=== PATIENT | female | born 2000 | race American Indian/Alaskan Native ===

== ENCOUNTER 2022-06-07 11:26 | Emergency (ER) | payer SELFPAY ==
--- NOTE | 2022-06-07 12:49 | Emergency Department Report ---
ED Chest Pain HPI - General Chief Complaint: Chest Pain Stated Complaint: CHEST PAIN SOB AND WHEEZING Time Seen by Provider: 06/07/22 12:45 Source: patient Mode of arrival: Ambulatory Limitations: No Limitations - History of Present Illness Initial Comments: 22-year-old female presents with chest pain since yesterday. Patient describes pain in her chest substernal, does not radiate to any of extremities. Symptoms associated with shortness of breath, states she walks a few steps and she is short of breath. She also reports nasal drainage, congestion, cough, and wheezing. She denies history of asthma. Cough is productive of clear mucus, she denies fever, she denies headache dizziness no lower lower extremity swelling. Patient is hypertensive in triage which she denies history of high blood pressure. MD Complaint: chest pain -: Gradual Pain Location: substernal Pain Radiation: none Severity scale (0 -10): 6 Improves With: nothing Context: recent illness re: nausea, vomting. denies: diaphoresis, dyspnea, sense of impending doom Other Symptoms: cough. denies: fever, palpitations Treatments Prior to Arrival: none - Related Data Previous Rx's Medication Instructions Recorded Last Taken Type Albuterol Sulfate [Albuterol 0.63% 0.63 mg IH TID PRN #30 vial 06/07/22 Unknown Rx NEBS] Albuterol Sulfate [Proair 90 mcg IH Q6H PRN #1 06/07/22 Unknown Rx Respiclick] Promethazine Dm (Nf) [Phenergan DM 5 ml PO Q6H PRN #120 06/07/22 Unknown Rx 6.25-15 mg/5 ml] Allergies Allergy/AdvReac Type Severity Reaction Status Date / Time No Known Allergies Allergy Verified 06/07/22 12:13 Heart Score - HEART Score History: Slightly suspicious EKG: Normal Age: < 45 Risk factors: No known risk factors Troponin: < normal limit HEART Score: 0 - EKG Read Time Time EKG Completed: 12:17 EKG Read Time: 12:20 - Critical Actions Critical Actions: 0-3 pts:0.9-1.7%risk of adverse cardiac event.Candidate for discharge ED Review of Systems ROS: Stated complaint: CHEST PAIN SOB AND WHEEZING Other details as noted in HPI Constitutional: no symptoms reported Eyes: eye discharge ENT: congestion (Nasal drainage). denies: ear pain, throat pain Respiratory: cough, shortness of breath, wheezing. denies: orthopnea Cardiovascular: chest pain. denies: palpitations, dyspnea on exertion, edema Gastrointestinal: abdominal pain, nausea, vomiting, diarrhea Genitourinary: denies: urgency, dysuria Musculoskeletal: denies: back pain Skin: denies: rash, lesions Psychiatric: denies: anxiety, auditory hallucinations, homicidal thoughts ED Past Medical Hx - Medications Home Medications: Home Medications Medication Instructions Recorded Confirmed Last Taken Type Albuterol Sulfate [Albuterol 0.63% 0.63 mg IH TID PRN #30 vial 06/07/22 Unknown Rx NEBS] Albuterol Sulfate [Proair 90 mcg IH Q6H PRN #1 06/07/22 Unknown Rx Respiclick] Promethazine Dm (Nf) [Phenergan DM 5 ml PO Q6H PRN #120 06/07/22 Unknown Rx 6.25-15 mg/5 ml] ED Physical Exam - General Limitations: No Limitations General appearance: alert, in no apparent distress - Head Head exam: Present: atraumatic - Eye Eye exam: Present: normal appearance, PERRL Pupils: Present: normal accommodation - ENT ENT exam: Present: normal exam, mucous membranes moist, other (No rhinorrhea, no sinus tenderness) - Neck Neck exam: Present: normal inspection. Absent: tenderness - Respiratory Respiratory exam: Present: normal lung sounds bilaterally, chest wall tenderness. Absent: respiratory distress, wheezes - Cardiovascular Cardiovascular Exam: Present: regular rate, normal rhythm - GI/Abdominal GI/Abdominal exam: Present: soft. Absent: distended, tenderness - Extremities Exam Extremities exam: Present: normal inspection, full ROM, normal capillary refill. Absent: tenderness - Back Exam Back exam: Present: normal inspection, full ROM. Absent: CVA tenderness (R), CVA tenderness (L) - Neurological Exam Neurological exam: Present: alert, oriented X3, CN II-XII intact, normal gait, reflexes normal - Skin Skin exam: Present: warm, dry, intact, normal color ED Course Vital Signs 06/07/22 12:09 Temperature 98.3 F Pulse Rate 105 H Blood Pressure 184/119 [Right] O2 Sat by Pulse 99 Oximetry ED Medical Decision Making - Lab Data Result diagrams: 06/07/22 14:24 06/07/22 14:24 - Radiology Data Radiology results: image reviewed interpreted by me: Negative for acute effusions, cardiomegaly or infiltrates - Medical Decision Making 22-year-old female presents with chest pain since yesterday. Patient describes pain in her chest substernal, does not radiate to any of extremities. Symptoms associated with shortness of breath, states she walks a few steps and she is short of breath. She also reports nasal drainage, congestion, cough, and wheezing. She denies history of asthma. Cough is productive of clear mucus, she denies fever, she denies headache dizziness no lower lower extremity swelling. Patient is hypertensive in triage which she denies history of high blood pressure Vital signs is improved, EKG is nonischemic, troponin is negative, heart score of 0, patient is not hypoxic, tolerating oral intake without vomiting, throughout ED course. Chest x-ray is negative for any acute infectious process. Symptoms are mostly viral, differential diagnosis includes COVID, g astroenteritis, asthma, bronchitis, pneumonia, gastroenteritis, Critical care attestation.: If time is entered above; I have spent that time in minutes in the direct care of this critically ill patient, excluding procedure time. ED Disposition Clinical Impression: Bronchitis, Acute gastroenteritis, Elevated blood pressure reading Disposition: HOME / SELF CARE / HOMELESS Is pt being admited?: No Does the pt Need Aspirin: No Condition: Stable Instructions: Viral Gastroenteritis, Adult, Chronic Bronchitis (ED) Prescriptions: Albuterol Sulfate [Albuterol 0.63% NEBS] 0.63 mg IH TID PRN #30 vial PRN Reason: Wheezing Promethazine Dm (Nf) [Phenergan DM 6.25-15 mg/5 ml] 5 ml PO Q6H PRN #120 PRN Reason: Cough Albuterol Sulfate [Proair Respiclick] 90 mcg IH Q6H PRN #1 PRN Reason: Wheezing Referrals: JAVED COLE MD [Primary Care Provider] - 3-5 Days Forms: Work/School Release Form(ED)
[2022-06-07 14:46] LABS: Hematocrit 40.3 % (30.3-42.9); Hemoglobin 13.8 gm/dl (10.1-14.3); Mean Corpuscular HGB Conc 34 % (30-34); Mean Corpuscular Volume 88 fl (79-97); Platelet Count 331 K/mm3 (140-440); Red Blood Count 4.57 M/mm3 (3.65-5.03); Red Cell Distribution Width 12.6 % (13.2-15.2)
[2022-06-07 15:40] LABS: BUN/Creatinine Ratio 10; Blood Urea Nitrogen 8 mg/dL (7-17); Calcium 9.3 mg/dL (8.4-10.2); Hemolysis Index 7
[2022-06-07 21:11] VITALS: BP 166/84
--- NOTE | 2022-06-08 08:05 | XRay Report ---
CHEST 2 VIEWS INDICATION / CLINICAL INFORMATION: chest pain, sob STUDY TIME: 1718 COMPARISON: None available. FINDINGS: SUPPORT DEVICES: None. HEART / MEDIASTINUM: No significant abnormality. LUNGS / PLEURA: No significant acute pulmonary or pleural abnormality. No pneumothorax. ADDITIONAL FINDINGS: No significant additional findings. Signer Name: Tay Chao MD Signed: 06/07/2022 5:23 PM Workstation Name: [employer]
--- NOTE | 2022-06-09 18:02 | Electrocardiograph Report ---
[facility] Test Date: 2022-06-07 Test Time: 12:17:13 Pat Name: GARY TEMPLETON Department: Room: Gender: F [employer]: RITA : 2000 Requested By: JUAN MARTINS Order Number: [id number] Reading MD: Catalina Lutz Measurements Intervals [place] Rate: 109 P: 74 TX: 159 QRS: 24 QRSD: 77 T: 4 QT: 299 QTc: 402 Interpretive Statements Sinus tachycardia No previous ECG available for comparison Electronically Signed On 06-09-2022 18:01:34 EDT by Catalina Lutz
== END 2022-06-07 21:11 | disposition home or self-care (01) ==
LOC: ED 11:26
DX: J40 Bronchitis, not specified as acute or chronic (principal); K52.9 Noninfective gastroenteritis and colitis, unspecified; I10 Essential (primary) hypertension
CPT/HCPCS: 36415; 71046; 80048; 84484; 85027; 93005; 99283